=== PATIENT | male | born 1960 | race Caucasian/White ===

== ENCOUNTER 2018-03-23 07:52 | Emergency (ER) | payer BC, OTHER ==
[2018-03-23 08:35] LABS: #Basophils 0.1 thou/uL (0.0-0.2); #Eosinphils 0.2 thou/uL (0.0-0.7); #Lymphocytes 2.2 thou/uL (1.20-3.40); #Monocytes 0.8 thou/uL (0.11-0.59); #Neutrophils 7.9 thou/uL (1.40-6.50); %Basophils 0.5 % (0.0-1.0); %Eosinophils 1.4 % (0.0-10.0); %Lymphocytes 19.9 % (21.0-51.0); %Monocytes 7.1 % (0.0-10.0); %Neutrophils 71.1 % (42.0-75.0); Hemoglobin 13.3 g/dL (14.0-18.0); Mean Corpuscular HGB CONC 33.2 g/dL (32.0-36.0); Mean Corpuscular Hemoglobin 30.4 pg (27.0-31.0); Mean Corpuscular Volume 91.6 fL (78.0-98.0); Mean Platelet Volume 6.8 fL (7.4-10.4); Platelet Count 257 thou/uL (130-400); RBC Distribution Width 13.5 % (11.5-14.5); Red Blood Cell (RBC) Count 4.37 mill/uL (4.70-6.10); White Blood Cell (WBC) Count 11.2 thou/uL (4.8-10.8)
[2018-03-23 08:42] LABS: ALT (SGPT) 20 U/L (8-55); AST (SGOT) 17 U/L (5-34); Alkaline Phosphatase 77 U/L (40-150); Anion Gap 10 mmol/L (10-20); BUN (Urea Nitrogen) 16 mg/dL (8.4-25.7); Bilirubin, Total 0.5 mg/dL (0.2-1.2); CK (CPK) 115 U/L (30-200); Calc. Creatinine Clearance 0 mL/min (70-130); Calcium 8.9 mg/dL (7.8-10.44); Carbon Dioxide 23 mmol/L (22-29); Chloride 107 mmol/L (98-107); Estimated GFR-MDRD 61; Globulin 3.9 g/dL (2.4-3.5); Glucose 121 mg/dL (70-105); Potassium 4.3 mmol/L (3.5-5.1); Protein, Total 7.9 g/dL (6.0-8.3); Sodium 136 mmol/L (136-145)
[2018-03-23 08:45] LABS: Troponin I Less than 0.010 ng/mL (< 0.028)
[2018-03-23] MEDS ORDERED: Acetaminophen 500 MG TAB ONE (08:45)
--- NOTE | 2018-03-23 09:27 | RAD ---
CHEST 2 VIEWS: HISTORY: Pain. COMPARISON: 01/10/2016. FINDINGS: Normal cardiac silhouette. The pulmonary vessels and hilum are normal. Costophrenic angles are akhil r. No consolidation or mass. No pneumothorax or osseous abnormalities. IMPRESSION: No acute cardiopulmonary process. POS: ALESSIO
--- NOTE | 2018-03-23 09:30 | RAD ---
LEFT SHOULDER 3 VIEWS: HISTORY: Pain. COMPARISON: None. FINDINGS: The glenohumeral joint space is preserved. No fracture or dislocation. Mild degenerative changes of the AC joint space are noted. IMPRESSION: No fracture or dislocation. POS: CRISTINA
[2018-03-23] MEDS ORDERED: Ketorolac Tromethamine 30 MG/ML VIAL ONE (09:54)
[2018-03-23 12:08] LABS: Troponin I Less than 0.010 ng/mL (< 0.028)
--- NOTE | 2018-03-29 13:41 | EKG ---
Test Reason : Blood Pressure : / mmHG Vent. Rate : 080 BPM Atrial Rate : 080 BPM P-R Int : 160 ms QRS Dur : 094 ms QT Int : 406 ms P-R-T Axes : 052 015 060 degrees QTc Int : 468 ms Normal sinus rhythm Normal ECG Confirmed by RIVKA MINAYA DO ([id number]), content editor JOSE EDUARDO TORREZ ([id number] on 03/29/2018 1:41:26 PM Referred By: Confirmed By:RIVKA MINAYA DO
== END 2018-03-23 12:55 | disposition home or self-care (01) ==
LOC: ERS 07:52
DX: M25.512 Pain in left shoulder (principal); I10 Essential (primary) hypertension; E78.5 Hyperlipidemia, unspecified; F17.210 Nicotine dependence, cigarettes, uncomplicated; Z79.82 Long term (current) use of aspirin; Z79.899 Other long term (current) drug therapy
CPT/HCPCS: 36415; 71046; 80053; 82550; 82553; 84484; 85025; 93005; 96374; J1885